=== PATIENT | male | born 1960 | race Caucasian/White ===

== ENCOUNTER → 2021-05-17 | Outpatient (CLI) | payer BC ==
--- NOTE | 2021-05-17 18:36 | XR ---
EXAMINATION TYPE: XR shoulder complete 3 views LT DATE OF EXAM: 05/17/2021 Comparison: None Clinical History: 60-year-old male M25.512 Pain L shoulder Findings: Moderate degenerative change at the acromioclavicular joint with joint space narrowing and marginal s purring. Subacromial space is preserved. However there is bony irregularity of the greater tuberosity and possible severe degenerative change at the glenohumeral joint with joint space narrowing and mar ginal spurring. Impression: Consider CT or MRI to confirm bone on bone left glenohumeral joint OA. There is also bony irregularit y of the greater tuberosity that could reflect chronic rotator cuff tendinopathy. Moderate AC joint O A.
== END | disposition home or self-care (01) ==
LOC: RADXRMAIN 12:52
PROVIDERS: ATTEND Internal Medicine
DX: M19.012 Primary osteoarthritis, left shoulder (principal)

== ENCOUNTER → 2022-01-18 | Outpatient (CLI) | payer BC ==
[2022-01-18 10:03] LABS: African American GFR (CKD) >90 (>60 ml/min/1.73 sqM); Blood Urea Nitrogen 19 mg/dL (9-20); Non-African American GFR(CKD) >90 (>60 ml/min/1.73 sqM)
--- NOTE | 2022-01-18 11:59 | CT ---
EXAMINATION TYPE: CT ChestAbdPelvis wo/w con CT DLP: 3580.6 mGycm, Automated exposure control for dose reduction was used. DATE OF EXAM: 01/18/2022 11:15 AM COMPARISON: None CLINICAL INDICATION:Male, 61 years old with history of H31.8 OTHER SPECIFIED DISORDERS OF CHOROID; PH H, Choroidal lesion. Technique: Multiple axial images of the chest, abdomen, and pelvis were obtained before and after the intravenous administration of 70 mL Isovue-300. Oral contrast was administered. Two-dimensional bart nal and sagittal reconstructions were obtained. Findings: CHEST: LUNGS/ PLEURA: No pneumothorax, pleural effusion, or focal consolidation. Left lower lobe 3 mm pulmon angela nodule along the left diaphragm (series 4, image 44). AIRWAY: Patent and unremarkable. HEART: Size within normal limits. Coronary artery calcifications. No pericardial effusion. MEDIASTINUM: No gross evidence of adenopathy. VASCULATURE: No aortic aneurysm. MUSCULOSKELETAL: No acute osseous abnormalities. SOFT TISSUES/LYMPH NODES: Unremarkable. LOWER NECK: No significant findings. ABDOMEN: ABDOMEN LIVER: Unremarkable GALLBLADDER AND BILE DUCTS: Unremarkable. PANCREAS: Unremarkable. SPLEEN: Unremarkable. ADRENAL GLANDS: Unremarkable. KIDNEYS AND URETERS: No evidence of hydronephrosis or renal calculus. The ureters are unremarkable. PELVIS BLADDER: Unremarkable REPRODUCTIVE: Prostate is enlarged in size measuring 5.4 cm in transverse dimension. ABDOMEN & PELVIS STOMACH AND BOWEL: Stomach and duodenum are unremarkable. Colonic diverticulosis of the descending an d sigmoid colon without evidence for acute diverticulitis. The appendix is within normal limits. No e vidence of bowel obstruction. PERITONEUM: No evidence of pneumoperitoneum or free fluid. VASCULATURE: Minimal atherosclerotic calcifications aorta and its branches. No abdominal aortic aneur ysm. MUSCULOSKELETAL: No acute osseous abnormalities. Mild disc degeneration changes are present throughout the thoracolumbar spine. No suspicious osseous lesions. LYMPH NODES: No gross evidence for lymphadenopathy. SOFT TISSUE/ABDOMINAL WALL: Unremarkable IMPRESSION: Chest: No definitive evidence for metastatic disease. Left lower lobe 3 mm pulmonary micronodule. Attention on follow-up. Abdomen pelvis: No evidence for metastatic disease.
== END | disposition home or self-care (01) ==
LOC: RADCTMAIN 09:10
PROVIDERS: ATTEND Ophthalmology
DX: H31.8 Other specified disorders of choroid (principal); I25.10 Atherosclerotic heart disease of native coronary artery without angina pectoris
CPT/HCPCS: 82565; 84520; 71270; 74178; 36415; Q9967

== ENCOUNTER → 2022-09-30 | Outpatient (CLI) | payer BC ==
--- NOTE | 2022-09-30 16:12 | XR ---
EXAMINATION TYPE: XR chest 2V DATE OF EXAM: 09/30/2022 COMPARISON: CT January 18, 2022 HISTORY: Cough and congestion for 4 to 5 days TECHNIQUE: Frontal and lateral views of the chest are obtained. FINDINGS: There is no focal air space opacity, pleural effusion, or pneumothorax seen. The cardiac silhouette size is within normal limits. Some multilevel spurring in the thoracic spine is present. IMPRESSION: No suspicious acute pulmonary infiltrate.
== END | disposition home or self-care (01) ==
LOC: RADXRMAIN 15:37
PROVIDERS: ATTEND Internal Medicine
DX: J06.9 Acute upper respiratory infection, unspecified (principal)
CPT/HCPCS: 71046

== ENCOUNTER → 2022-12-06 | Outpatient (CLI) | payer BC ==
--- NOTE | 2022-12-06 08:49 | US ---
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 FINDINGS: EXAM MEASUREMENTS: Liver Length: 14.2 cm Gallbladder Wall: 0.3 cm CBD: 0.4 cm Right Kidney: 11.9 x 6.4 x 6.4 cm Pancreas: Mostly obscured by bowel gas. Only portions of the pancreatic tail are seen. Liver: Limited intercostal views; visualized portions wnl. Gallbladder: No stones seen. No hydropic change, wall thickening, or surrounding fluid. Evidence for sonographic Drake's sign: No CBD: wnl Right Kidney: No hydronephrosis or masses seen IMPRESSION: Exam limited by bowel gas and intercostal views of the liver. No gallstones or biliary ductal dilatat ion.
== END | disposition home or self-care (01) ==
LOC: RADUSWWP 06:43
PROVIDERS: ATTEND Ophthalmology
DX: C69.31 Malignant neoplasm of right choroid (principal)
CPT/HCPCS: 76705

== ENCOUNTER → 2022-12-16 | Outpatient (CLI) | payer BC ==
[2022-12-16 07:39] LABS: African American GFR (CKD) >90 (>60 ml/min/1.73 sqM); Blood Urea Nitrogen 22 mg/dL (9-20); Non-African American GFR(CKD) >90 (>60 ml/min/1.73 sqM)
[2022-12-16 08:32] LABS: Basophils % (A) 0 %; Eosinophils # (A) 0.2 k/uL (0-0.7); Eosinophils % (A) 3 %; HCT 43.7 % (39.0-53.0); HGB 14.5 gm/dL (13.0-17.5); Lymphocytes # (A) 1.7 k/uL (1.0-4.8); Lymphocytes % (A) 27 %; MCH 30.2 pg (25.0-35.0); MCHC 33.1 g/dL (31.0-37.0); MCV 91.2 fL (80.0-100.0); Monocytes # (A) 0.4 k/uL (0-1.0); Monocytes % (A) 6 %; Neutrophils % (A) 63 %; Platelet Count 198 k/uL (150-450); RBC 4.79 m/uL (4.30-5.90); RDW 12.9 % (11.5-15.5); WBC 6.4 k/uL (3.8-10.6)
[2022-12-16 08:52] LABS: ALT 23 U/L (4-49); AST 27 U/L (17-59); African American GFR (CKD) >90 (>60 ml/min/1.73 sqM); Albumin/Globulin Ratio 1.6; Alkaline Phosphatase 88 U/L (38-126); Anion Gap 8 mmol/L; Blood Urea Nitrogen 22 mg/dL (9-20); Calcium 9.1 mg/dL (8.4-10.2); Carbon Dioxide 25 mmol/L (22-30); Chloride 104 mmol/L (98-107); Globulin 2.5 g/dL; Glucose 129 mg/dL (74-99); Non-African American GFR(CKD) >90 (>60 ml/min/1.73 sqM); Potassium 4.2 mmol/L (3.5-5.1); Sodium 137 mmol/L (137-145); Total Bilirubin 1.1 mg/dL (0.2-1.3); Total Protein 6.5 g/dL (6.3-8.2)
[2022-12-16 09:08] LABS: T4, Free (Free Thyroxine) 1.48 ng/dL (0.78-2.19)
--- NOTE | 2022-12-16 09:14 | CT ---
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 TECHNIQUE: Contiguous axial scanning of the chest after the administration of 100ml mL of Isovue 300. Coronal/sagittal reconstructions performed. CT DLP: 1140.7mGycm. Automatic exposure control utilized for a dose reduction. FINDINGS: Heart normal size without pericardial effusion. Mild aortic valvular calcifications and mild LAD bart nary artery calcifications are present. Ectatic ascending aorta 3.7 cm. Conventional arch vessel branching anatomy. No thoracic lymphadenopathy by CT size criteria. Tiny 4 mm right midlung pulmonary nodule, axial image 30 is unchanged. Punctate 3 mm lateral right ba david pulmonary nodule, unchanged. No consolidation or pleural effusion. Visualized upper abdomen shows no gross abnormality. Bones: Cervical spondylosis. Anterior endplate spondylosis mid to lower thoracic spine. Scattered mil d degenerative disc disease throughout the thoracic spine. IMPRESSION: A couple tiny right-sided pulmonary nodules measuring up to 4 mm remain unchanged suggesting a benign etiology. No evidence for metastatic disease in the chest. No acute pulmonary process.
[2022-12-16 15:55] LABS: Chol/HDL Ratio 2.23 Ratio; LDL Cholesterol,Calculated 60.1 mg/dL (0.0-131.0); VLDL Calculation 11.74 mg/dL (5.00-40.00)
== END | disposition home or self-care (01) ==
LOC: RADCTMAIN 07:07
PROVIDERS: ATTEND Ophthalmology
DX: C69.31 Malignant neoplasm of right choroid (principal); R91.8 Other nonspecific abnormal finding of lung field
CPT/HCPCS: 84439; 80061; 80053; 82565; 84443; 84520; 85025; 83036; 71270; 36415; Q9967

== ENCOUNTER → 2023-07-28 | Outpatient (CLI) | payer BC ==
--- NOTE | 2023-07-28 09:25 | US ---
EXAMINATION TYPE: US liver DATE OF EXAM: 07/28/2023 COMPARISON: 12/06/2022. 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 FINDINGS: EXAM MEASUREMENTS: Liver Length: 15.1 cm Gallbladder Wall: .3 cm CBD: .4 cm Right Kidney: 11.1 x 5.7 x 4.2 cm Pancreas: Obscured by bowel gas Liver: Scanned intercoastal limited areas scanned wnl , no masses or cystic structures with dilated ducts. Increased echotexture to liver parenchyma. Gallbladder: No stones seen Evidence for sonographic Drake's sign: No CBD: wnl Right Kidney: wnl IMPRESSION: Hepatic steatosis. No evidence for acute process.
== END | disposition home or self-care (01) ==
LOC: RADUSWWP 07:21
PROVIDERS: ATTEND Ophthalmology
DX: K76.0 Fatty (change of) liver, not elsewhere classified (principal); C69.31 Malignant neoplasm of right choroid
CPT/HCPCS: 76705

== ENCOUNTER → 2024-01-26 | Outpatient (CLI) | payer BC ==
--- NOTE | 2024-01-26 10:07 | CT ---
EXAMINATION TYPE: CT chest wo con CT DLP: 658 mGycm, Automated exposure control for dose reduction was used. DATE OF EXAM: 01/26/2024 7:31 AM COMPARISON: CT chest 12/16/2022, CT chest abdomen and pelvis 01/18/2022 CLINICAL INDICATION:Male, 63 years old with history of R91.1 LUNG NOD; PHH, Follow up for lung nodule found on previous CT. Prior in PACS. TECHNIQUE: Multiple axial images were obtained through the chest without IV contrast. Lack of IV or o ral contrast limits evaluation of solid and hollow organ viscera. . Coronal and sagittal reformats re viewed. FINDINGS: LUNGS/ PLEURA: No pleural effusion, pneumothorax, or focal consolidation. Left lower lobe 4.2 mm pulm onary nodule abutting the pleura is stable dating back to 2021. Additional stable 2 mm pulmonary nodu le within the right lower lobe at the base dating back to 2021. These are both considered benign give n stability for 2 years. Additional right midlung formalin or nodules not well-visualized today's exa m. No new or enlarging pulmonary nodules. AIRWAY: Patent and unremarkable.. HEART: Size within normal limits. No pericardial effusion. Mild coronary arterial calcification. Mild aortic valvular calcifications. MEDIASTINUM: No gross evidence of adenopathy. VASCULATURE: No aortic aneurysm. MUSCULOSKELETAL: No acute osseous abnormalities. Mild multilevel degenerative disc disease. SOFT TISSUES/LYMPH NODES: Unremarkable. LOWER NECK: No significant findings. UPPER ABDOMEN: Small hiatal hernia. Colonic diverticulosis of the visualized descending colon. IMPRESSION: Couple of stable small pulmonary micronodules dating back to 2021 and considered benign due to stabil ity for 2 years. No new or enlarging pulmonary nodules.
== END | disposition home or self-care (01) ==
LOC: RADCTMAIN 06:41
PROVIDERS: ATTEND Internal Medicine
DX: R91.1 Solitary pulmonary nodule (principal)
CPT/HCPCS: 71250

== ENCOUNTER → 2024-09-20 | Outpatient (CLI) | payer BC ==
[2024-09-20 10:12] LABS: Basophils # (A) 0.04 X 10*3/uL (0.00-0.10); Basophils % (A) 0.6 %; Eosinophils # (A) 0.13 X 10*3/uL (0.04-0.35); Eosinophils % (A) 1.9 %; HCT 42.1 % (39.6-50.0); HGB 14.1 g/dL (13.0-17.0); Lymphocytes # (A) 1.56 X 10*3/uL (0.90-5.00); Lymphocytes % (A) 22.7 %; MCH 30.5 pg (27.0-32.0); MCHC 33.5 g/dL (32.0-37.0); MCV 90.9 FL (80.0-97.0); Mean Platelet Volume 11.1 FL (9.5-12.2); Monocytes # (A) 0.56 X 10*3/uL (0.20-1.00); Monocytes % (A) 8.1 %; NRBC Per 100 WBC 0 X 10*3/uL (0.00-0.01); Neutrophils # (A) 4.57 X 10*3/uL (1.80-7.70); Neutrophils % (A) 66.4 %; Platelet Count 236 X 10*3/uL (140-440); RBC 4.63 X 10*6/uL (4.40-5.60); RDW 13.3 % (11.5-14.5); WBC 6.88 X 10*3/uL (4.50-10.00)
[2024-09-20 10:32] LABS: ALT 29 U/L (10-49); AST 29 U/L (14-35); Albumin 4.3 g/dL (3.8-4.9); Albumin/Globulin Ratio 1.95 Ratio (1.60-3.17); Alkaline Phosphatase 87 U/L (41-126); Blood Urea Nitrogen 17.6 mg/dL (9.0-27.0); Calcium 9.8 mg/dL (8.7-10.3); Carbon Dioxide 25.8 mmol/L (21.6-31.8); Chloride 111 mmol/L (96-109); Chol/HDL Ratio 2.17 Ratio; Globulin 2.2 g/dL (1.6-3.3); Glucose 108 mg/dL (70-110); Magnesium 1.8 mg/dL (1.5-2.4); Potassium 4.3 mmol/L (3.5-5.5); Sodium 149 mmol/L (135-145); Total Bilirubin 0.9 mg/dL (0.3-1.2); Total Protein 6.5 g/dL (6.2-8.2); VLDL Calculation 12.76 mg/dL (5.00-40.00)
[2024-09-20 10:33] LABS: Prostate Specific Antigen 1.92 ng/mL (0.000-4.500)
--- NOTE | 2024-09-20 12:14 | US ---
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 FINDINGS: EXAM MEASUREMENTS: Liver Length: 15.3 cm Gallbladder Wall: 0.2 cm CBD: 0.4 cm, color Doppler imaging was utilized to isolate the common bile duct for measurement. Right Kidney: 12.2x5.6x5.5 cm HEEL CASER NOTES: very limited scan due to pt body habitus & severe overlying bowel/gas Pancreas: Obscured by bowel gas Liver: Increased attenuation, decreased visualization of vessels suggestive of fatty infiltrate, yaniv y difficult to penetrate, LLD images obtained for slightly better visualization Gallbladder: slightly obscured by overlying bowel & rib shadow, intercostal views used Evidence for sonographic Drake's sign: No CBD: slightly obscured by overlying bowel Right Kidney: No hydronephrosis or masses seen IMPRESSION: Hepatic steatosis [facility], , 09/20/2024 12:11 PM
[2024-09-20 18:14] LABS: Microalbumin Creatinine Ratio <11 mg/g Cr (0-30)
== END | disposition home or self-care (01) ==
LOC: RADUSWWP 07:08
PROVIDERS: ATTEND Internal Medicine
DX: K75.81 Nonalcoholic steatohepatitis (NASH) (principal); E11.9 Type 2 diabetes mellitus without complications; N40.0 Benign prostatic hyperplasia without lower urinary tract symptoms
CPT/HCPCS: 76705; 80053; 80061; 82043; 82570; 83036; 83735; 84153; 84443; 85025